=== PATIENT | female | born 1985 | race African-American/Black ===

== ENCOUNTER 2016-06-09 08:23 | Emergency (ER) | payer MEDICAID ==
[2010-11-19 14:57] VITALS: BMI 27.1
[2016-06-09 09:18] LABS: HCG URINE NEGATIVE (NEGATIVE)
[2016-06-09 09:18] LABS: BASOPHILS 1.1 % (0.0-2.0); EOSINOPHILS 2.1 % (0-7); HEMATOCRIT 45.8 % (36.0-48.0); HEMOGLOBIN 16.1 g/dL (12-16); MCH 32.7 pg (26.0-34.0); MCHC 35.2 g/dL (31.0-37.0); MCV 93.1 fL (80.0-100.0); MEAN PLATELET VOLUME 10.8 fL (7.4-10.4); MONOCYTES 8.1 % (2-11); NEUTROPHILS 42.7 % (40-80); PLATELET COUNT 241 10x3/uL (130-400); RBC 4.92 10x6/uL (4.00-5.40); RDW 12.6 % (11.5-14.5); WBC 7.3 10x3/uL (4.8-10.8)
[2016-06-09 09:48] LABS: APPEARANCE HAZY (CLEAR); BACTERIA MODERATE /hpf (NONE SEEN); BILIRUBIN NEGATIVE (NEGATIVE); COLOR YELLOW (YELLOW); EPITHELIAL CELLS 0-5 /hpf (0-5); GLUCOSE NEGATIVE (NEGATIVE); KETONE NEGATIVE (NEGATIVE); LEUKOCYTE ESTERASE TRACE (NEGATIVE); MUCUS <1+ /lpf (NONE SEEN); NITRITE NEGATIVE (NEGATIVE); PROTEIN TRACE mg/dL (NEGATIVE); RED CELLS - URINE OCC /hpf (0-5); SPECIFIC GRAVITY 1.025 (1.005-1.020); UROBILINOGEN NORMAL (NORMAL); WHITE CELLS - URINE OCC /hpf (0-5)
[2016-06-09 09:50] LABS: ALBUMIN 4.6 g/dL (3.4-5.0); ANION GAP 14.4 mmol/L (8-16); BILIRUBIN - TOTAL 1.14 mg/dL (0.2-1.3); CALCIUM 9.6 mg/dL (8.5-10.1); CARBON DIOXIDE 27.8 mmol/L (21.0-32.0); CREATININE - SERUM 1.4 mg/dL (0.6-1.3); POTASSIUM - SERUM 3.2 mmol/L (3.5-5.1); PROTEIN - SERUM 8.4 g/dL (6.4-8.2)
[2016-06-09 09:57] LABS: C-REACTIVE PROTEIN 0.4 mg/dL (0.0-0.9); THYROID STIMULATING HORMONE 1.1 uIU/mL (0.36-3.74)
== END 2016-06-09 13:19 | disposition home or self-care (01) ==
LOC: D.ER 08:23
PROVIDERS: Family Medicine
DX: R11.10 Vomiting, unspecified (principal); R10.13 Epigastric pain

== ENCOUNTER 2017-06-22 11:39 | Emergency (ER) | payer MEDICAID ==
[2010-11-19 14:57] VITALS: BMI 27.1
== END 2017-06-22 14:22 | disposition home or self-care (01) ==
LOC: D.ER 11:39
DX: S61.210A Laceration without foreign body of right index finger without damage to nail, initial encounter (principal); W25.XXXA Contact with sharp glass, initial encounter; Y93.89 Activity, other specified; Y92.019 Unspecified place in single-family (private) house as the place of occurrence of the external cause

== ENCOUNTER → 2018-03-11 10:55 | Outpatient (CLI) | payer MEDICAID ==
[2010-11-19 14:57] VITALS: BMI 27.1
== END | disposition home or self-care (01) ==
LOC: D.RAD 10:55
DX: M25.561 Pain in right knee (principal)

== ENCOUNTER 2018-05-25 17:26 | Emergency (ER) | payer MEDICAID ==
[~2018-05-25] VITALS: Ht 157.5 cm; Wt 65.9 kg
[2018-05-25 17:29] VITALS: Ht 157.5 cm; Wt 65.9 kg
[2018-05-25] MEDS ORDERED: VOLTAREN75 MG PO (18:20)
[2018-05-25 18:37] VITALS: BP 129/84
== END 2018-05-25 18:37 | disposition home or self-care (01) ==
LOC: D.ER 17:26
DX: S63.502A Unspecified sprain of left wrist, initial encounter (principal); X58.XXXA Exposure to other specified factors, initial encounter; Y93.89 Activity, other specified; Y92.019 Unspecified place in single-family (private) house as the place of occurrence of the external cause; F17.200 Nicotine dependence, unspecified, uncomplicated

== ENCOUNTER 2019-01-08 17:24 | Emergency (ER) | payer MEDICAID ==
[~2019-01-08] VITALS: Ht 157.5 cm; Wt 61.8 kg
[~2019-01-08 17:24] MED LIST: VOLTAREN75 MG PO
[2019-01-08 17:27] VITALS: Ht 157.5 cm; Wt 61.8 kg
[2019-01-08 19:26] LABS: APPEARANCE CLEAR (CLEAR); BASOPHILS 1.1 % (0-2); COLOR STRAW (YELLOW); EOSINOPHILS 1.9 % (0-7); HEMATOCRIT 41.2 % (36.0-48.0); HEMOGLOBIN 14.7 g/dL (12-16); IMMATURE GRANULOCYTES 0.2 % (0-5); LYMPHOCYTES 49.6 % (15-50); MCH 32.9 pg (26.0-34.0); MCHC 35.7 g/dL (31.0-37.0); MCV 92.2 fL (80.0-100.0); MONOCYTES 9.4 % (2-11); NEUTROPHILS 37.8 % (40-80); PLATELET COUNT 234 10x3/uL (130-400); RBC 4.47 10x6/uL (4.00-5.40); WBC 6.3 10x3/uL (4.8-10.8)
[2019-01-08 19:27] LABS: BILIRUBIN NEGATIVE (NEGATIVE); GLUCOSE NEGATIVE (NEGATIVE); KETONE NEGATIVE (NEGATIVE); NITRITE NEGATIVE (NEGATIVE); PROTEIN NEGATIVE (NEGATIVE); SPECIFIC GRAVITY 1.005 (1.005-1.020); UROBILINOGEN NORMAL (NORMAL)
[2019-01-08 19:35] LABS: HCG SERUM NEGATIVE (NEGATIVE)
[2019-01-08 19:39] LABS: ALBUMIN 4.3 g/dL (3.4-5.0); ANION GAP 11.3 mmol/L (8-16); BILIRUBIN - TOTAL 0.56 mg/dL (0.2-1.3); CALCIUM 9.5 mg/dL (8.5-10.1); CARBON DIOXIDE 28.3 mmol/L (21.0-32.0); CREATININE - SERUM 1.1 mg/dL (0.6-1.3); POTASSIUM - SERUM 3.6 mmol/L (3.5-5.1); PROTEIN - SERUM 8.2 g/dL (6.4-8.2)
[2019-01-08] MEDS ORDERED: ZOFRAN8 MG PO (20:44)
[2019-01-08 22:34] VITALS: BP 131/80
== END 2019-01-08 22:34 | disposition home or self-care (01) ==
LOC: D.ER 17:24
PROVIDERS: Emergency Medicine
DX: R11.2 Nausea with vomiting, unspecified (principal); K52.9 Noninfective gastroenteritis and colitis, unspecified

== ENCOUNTER 2019-01-26 14:47 | Emergency (ER) | payer MEDICAID ==
[~2019-01-26] VITALS: Ht 157.5 cm; Wt 61.8 kg
[~2019-01-26 14:47] MED LIST changes: +ZOFRAN8 MG PO
[2019-01-26 14:49] VITALS: Ht 157.5 cm; Wt 61.8 kg
[2019-01-26] MEDS ORDERED: OMEPRAZOLE20 M1 PO (14:52)
[2019-01-26] MEDS ORDERED: LISINOPRIL20 MG PO (14:52)
[2019-01-26] MEDS ORDERED: XANAX2 MG PO (14:53)
[2019-01-26 15:25] LABS: EOSINOPHILS 1.4 % (0-7); HEMATOCRIT 39.3 % (36.0-48.0); HEMOGLOBIN 14.5 g/dL (12-16); IMMATURE GRANULOCYTES 0.3 % (0-5); LYMPHOCYTES 48.4 % (15-50); MCH 32.8 pg (26.0-34.0); MCHC 36.9 g/dL (31.0-37.0); MCV 88.9 fL (80.0-100.0); MEAN PLATELET VOLUME 9.8 fL (7.4-10.4); MONOCYTES 8.3 % (2-11); NEUTROPHILS 40.6 % (40-80); PLATELET COUNT 198 10x3/uL (130-400); RBC 4.42 10x6/uL (4.00-5.40); WBC 7.8 10x3/uL (4.8-10.8)
[2019-01-26 15:46] LABS: ALBUMIN 4.3 g/dL (3.4-5.0); ALKALINE PHOSPHATASE 63 U/L (46-116); ALT (SGPT) 32 U/L (10-68); BILIRUBIN - TOTAL 0.62 mg/dL (0.2-1.3); CALC OSMOLALITY 269 mosm/kg (275-300); CALCIUM 9.1 mg/dL (8.5-10.1); CARBON DIOXIDE 27.1 mmol/L (21.0-32.0); CHLORIDE - SERUM 98 mmol/L (98-107); GLUCOSE 83 mg/dL (74-106); POTASSIUM - SERUM 3.4 mmol/L (3.5-5.1); PROTEIN - SERUM 8.1 g/dL (6.4-8.2); SODIUM 135 mmol/L (136-145); UREA NITROGEN 14 mg/dL (7-18); eGFR NON AFRICAN AMERICAN 68 mL/min (90-120)
[2019-01-26 15:48] LABS: APPEARANCE CLEAR (CLEAR); BILIRUBIN NEGATIVE (NEGATIVE); COLOR YELLOW (YELLOW); GLUCOSE NEGATIVE (NEGATIVE); KETONE NEGATIVE (NEGATIVE); NITRITE NEGATIVE (NEGATIVE); PROTEIN NEGATIVE (NEGATIVE); UROBILINOGEN NORMAL (NORMAL)
[2019-01-26 15:49] LABS: APTT 27.1 SECONDS (22.8-39.4); HCG URINE NEGATIVE (NEGATIVE); INR 0.96 (0.85-1.17); PROTIME 12.3 SECONDS (11.6-15.0)
[2019-01-26 15:57] LABS: CKMB 1.1 U/L (0.0-3.6); CREATINE KINASE 231 UL (21-215); MAGNESIUM - SERUM 2.1 mg/dL (1.8-2.4)
[2019-01-26 16:04] LABS: TROPONIN-I < 0.017 ng/mL (0.000-0.060)
[2019-01-26] MEDS ORDERED: ZOFRAN4 MG PO (17:09)
[2019-01-26 19:47] VITALS: BP 128/76
== END 2019-01-26 17:30 | disposition home or self-care (01) ==
LOC: D.ER 14:47
PROVIDERS: Family Medicine
DX: K52.9 Noninfective gastroenteritis and colitis, unspecified (principal); R11.2 Nausea with vomiting, unspecified

== ENCOUNTER 2019-03-07 08:55 | Emergency (ER) | payer MEDICAID ==
[~2019-03-07] VITALS: Ht 157.5 cm; Wt 59.1 kg
[~2019-03-07 08:55] MED LIST changes: +LISINOPRIL20 MG PO; +OMEPRAZOLE20 M1 PO; +XANAX2 MG PO; +ZOFRAN4 MG PO
[2019-03-07 09:01] VITALS: Ht 157.5 cm; Wt 59.1 kg
[2019-03-07 09:27] LABS: BASOPHILS 0.9 % (0-2); EOSINOPHILS 1.6 % (0-7); HEMATOCRIT 40.5 % (36.0-48.0); HEMOGLOBIN 14.3 g/dL (12-16); IMMATURE GRANULOCYTES 0.2 % (0-5); LYMPHOCYTES 42.2 % (15-50); MCH 32.9 pg (26.0-34.0); MCHC 35.3 g/dL (31.0-37.0); MCV 93.1 fL (80.0-100.0); MEAN PLATELET VOLUME 9.4 fL (7.4-10.4); MONOCYTES 8.5 % (2-11); NEUTROPHILS 46.6 % (40-80); RBC 4.35 10x6/uL (4.00-5.40); WBC 5.5 10x3/uL (4.8-10.8)
[2019-03-07 09:29] LABS: PLATELET COUNT 276 10x3/uL (130-400)
[2019-03-07 09:40] LABS: ALBUMIN 4.5 g/dL (3.4-5.0); ALKALINE PHOSPHATASE 52 U/L (46-116); ALT (SGPT) 22 U/L (10-68); BILIRUBIN - TOTAL 0.96 mg/dL (0.2-1.3); CALC OSMOLALITY 279 mosm/kg (275-300); CALCIUM 9.4 mg/dL (8.5-10.1); CARBON DIOXIDE 28.3 mmol/L (21.0-32.0); CHLORIDE - SERUM 101 mmol/L (98-107); CREATININE - SERUM 1.2 mg/dL (0.6-1.3); GLUCOSE 97 mg/dL (74-106); POTASSIUM - SERUM 3.4 mmol/L (3.5-5.1); PROTEIN - SERUM 8.3 g/dL (6.4-8.2); SODIUM 140 mmol/L (136-145); UREA NITROGEN 14 mg/dL (7-18); eGFR NON AFRICAN AMERICAN 54 mL/min (90-120)
[2019-03-07 09:44] LABS: AMYLASE - SERUM 42 U/L (25-115); LIPASE 91 U/L (73-393)
[2019-03-07 09:45] LABS: TROPONIN-I < 0.017 ng/mL (0.000-0.060)
[2019-03-07 09:50] LABS: HCG SERUM NEGATIVE (NEGATIVE)
[2019-03-07] MEDS ORDERED: ZOFRAN ODT4 MG/UDTAB PO (10:26)
[2019-03-07] MEDS ORDERED: PROTONIX40 MG PO (10:26)
[2019-03-07 11:07] LABS: APPEARANCE CLEAR (CLEAR); BILIRUBIN NEGATIVE (NEGATIVE); COLOR YELLOW (YELLOW); GLUCOSE NEGATIVE (NEGATIVE); KETONE NEGATIVE (NEGATIVE); NITRITE NEGATIVE (NEGATIVE); PROTEIN TRACE mg/dL (NEGATIVE); SPECIFIC GRAVITY 1.015 (1.005-1.020); UROBILINOGEN NORMAL (NORMAL)
[2019-03-07 11:08] LABS: BACTERIA FEW /hpf (NEGATIVE); EPITHELIAL CELLS 0-5 /hpf (0-5); RED CELLS - URINE 0-5 /hpf (0-5); WHITE CELLS - URINE 0-5 /hpf (NEGATIVE)
[2019-03-07 12:03] VITALS: BP 107/74
== END 2019-03-07 12:00 | disposition home or self-care (01) ==
LOC: D.ER 08:55
PROVIDERS: Emergency Medicine
DX: K29.00 Acute gastritis without bleeding (principal); F41.9 Anxiety disorder, unspecified; I10 Essential (primary) hypertension; F17.210 Nicotine dependence, cigarettes, uncomplicated

== ENCOUNTER 2020-02-03 05:23 | Emergency (ER) | payer MEDICAID ==
[~2020-02-03] VITALS: Ht 157.5 cm; Wt 59.1 kg
[~2020-02-03 05:23] MED LIST changes: +PROTONIX40 MG PO; +ZOFRAN ODT4 MG/UDTAB PO
[2020-02-03 05:25] VITALS: Ht 157.5 cm; Wt 59.1 kg
[2020-02-03] MEDS ORDERED: ZOLOFT50 MG PO (05:28)
[2020-02-03 06:28] LABS: BASOPHILS 0.9 % (0-2); HEMOGLOBIN 13.7 g/dL (12-16); LYMPHOCYTES 45.5 % (15-50); MCH 33.3 pg (26.0-34.0); MCHC 34.3 g/dL (31.0-37.0); MCV 97.3 fL (80.0-100.0); MEAN PLATELET VOLUME 10.1 fL (7.4-10.4); MONOCYTES 8.4 % (2-11); NEUTROPHILS 42.2 % (40-80); RBC 4.11 10x6/uL (4.00-5.40); RDW 12.6 % (11.5-14.5); WBC 5.7 10x3/uL (4.8-10.8)
[2020-02-03 06:34] LABS: ANION GAP 13.1 mmol/L (8-16); CARBON DIOXIDE 27.2 mmol/L (21.0-32.0); CREATININE - SERUM 1.1 mg/dL (0.6-1.3); POTASSIUM - SERUM 3.3 mmol/L (3.5-5.1)
[2020-02-03 06:40] LABS: ALBUMIN 3.9 g/dL (3.4-5.0); BILIRUBIN - TOTAL 0.52 mg/dL (0.2-1.3); PROTEIN - SERUM 7.1 g/dL (6.4-8.2)
[2020-02-03 06:41] LABS: PLATELET COUNT 214 10x3/uL (130-400)
[2020-02-03 06:50] LABS: HCG URINE NEGATIVE (NEGATIVE)
[2020-02-03 06:55] LABS: BACTERIA FEW /hpf (NONE SEEN); BILIRUBIN NEGATIVE (NEGATIVE); EPITHELIAL CELLS 0-5 /hpf (0-5); KETONE NEGATIVE (NEGATIVE); NITRITE NEGATIVE (NEGATIVE); RED CELLS - URINE RARE /hpf (0-5); WHITE CELLS - URINE 0-5 /hpf (0-5)
[2020-02-03] MEDS ORDERED: ULTRAM50 MG PO (08:34)
[2020-02-03 09:35] VITALS: BP 132/91
[2020-02-08 16:09] LABS: CHLAMYDIA TRACHOMATIS, NAA Negative (Negative)
== END 2020-02-03 09:35 | disposition home or self-care (01) ==
LOC: D.ER 05:23
PROVIDERS: Emergency Medicine; Family Medicine
DX: N73.9 Female pelvic inflammatory disease, unspecified (principal); I10 Essential (primary) hypertension; K21.9 Gastro-esophageal reflux disease without esophagitis; R10.9 Unspecified abdominal pain

== ENCOUNTER 2020-02-27 04:57 | Emergency (ER) | payer MEDICAID ==
[~2020-02-27] VITALS: Ht 157.5 cm; Wt 54.5 kg
[~2020-02-27 04:57] MED LIST changes: +ULTRAM50 MG PO; +ZOLOFT50 MG PO
[2020-02-27 05:01] VITALS: BP 101/71; Ht 157.5 cm; Wt 54.5 kg
[2020-02-27 05:50] LABS: HEMATOCRIT 43.7 % (36.0-48.0); HEMOGLOBIN 15.3 g/dL (12-16); MCH 33.2 pg (26.0-34.0); MCV 94.8 fL (80.0-100.0); MEAN PLATELET VOLUME 10.3 fL (7.4-10.4); PLATELET COUNT 203 10x3/uL (130-400); RBC 4.61 10x6/uL (4.00-5.40); RDW 12.7 % (11.5-14.5); WBC 6.4 10x3/uL (4.8-10.8)
[2020-02-27 06:01] LABS: BILIRUBIN NEGATIVE (NEGATIVE); HCG URINE NEGATIVE (NEGATIVE); KETONE NEGATIVE (NEGATIVE); NITRITE NEGATIVE (NEGATIVE); UROBILINOGEN NORMAL mg/dL (< 2)
[2020-02-27 06:03] LABS: BACTERIA MODERATE HPF (NONE SEEN); EPITHELIAL CELLS 0-5 /hpf (0-5); WHITE CELLS - URINE 0-5 HPF (0-4)
[2020-02-27 06:05] LABS: ALBUMIN 4.2 g/dL (3.4-5.0); ANION GAP 11.9 mmol/L (8-16); BILIRUBIN - TOTAL 0.64 mg/dL (0.2-1.3); CALCIUM 9.2 mg/dL (8.5-10.1); CREATININE - SERUM 1.3 mg/dL (0.6-1.3); PROTEIN - SERUM 7.8 g/dL (6.4-8.2)
[2020-02-27 06:10] LABS: POTASSIUM - SERUM 2.9 mmol/L (3.5-5.1)
[2020-02-27] MEDS ORDERED: K-TAB10 MEQ PO (08:33)
[2020-02-27] MEDS ORDERED: ZOFRAN ODT4 MG/UDTAB PO (08:33)
[2020-02-27] MEDS ORDERED: PEPCID40 MG PO (08:33)
[2020-02-27 09:38] LABS: EOSINOPHILS 4 % (0-7); HYPOCHROMASIA OCC; LYMPHOCYTES 63 % (15-50); MONOCYTES 7 % (2-11); NEUTROPHILS 23 % (40-80); PLATELET ESTIMATE NORMAL
[2020-02-27 10:37] LABS: UDS - AMPHET NEGATIVE QUAL (NEGATIVE); UDS - BARB NEGATIVE QUAL (NEGATIVE); UDS - BENZO POSITIVE QUAL (NEGATIVE); UDS - COCAINE NEGATIVE QUAL (NEGATIVE); UDS - OPIATE NEGATIVE QUAL (NEGATIVE); UDS - PCP NEGATIVE QUAL (NEGATIVE); UDS - THC POSITIVE QUAL (NEGATIVE)
== END 2020-02-27 09:10 | disposition home or self-care (01) ==
LOC: D.ER 04:57
PROVIDERS: Family Medicine
DX: K29.00 Acute gastritis without bleeding (principal); E87.6 Hypokalemia; I10 Essential (primary) hypertension; K21.9 Gastro-esophageal reflux disease without esophagitis; Z72.0 Tobacco use; R11.2 Nausea with vomiting, unspecified